=== PATIENT | female | born 1980 | race Caucasian/White ===

== ENCOUNTER 2018-01-28 12:52 | Inpatient (IN) | payer MEDICAID ==
[~2018-01-28] VITALS: Ht 170.2 cm; Wt 56.3 kg
[2018-01-28] MEDS ORDERED: PROZ10 PO (13:16)
[2018-01-28] MEDS ORDERED: BUPR75 PO (13:16)
[2018-01-28] MEDS ORDERED: QUET25TA PO (13:16)
[2018-01-28] MEDS ORDERED: LORA0.5T2 PO (13:16)
[2018-01-28 13:37] LABS: AMPHET/METH SCREEN,URINE POSITIVE (NEGATIVE); BARBITURATE SCREEN, URINE NEGATIVE (NEGATIVE); BENZODIAZEPINES SCREEN,URINE NEGATIVE (NEGATIVE); CANNABINOID SCREEN,URINE POSITIVE (NEGATIVE); COCAINE SCREEN,URINE NEGATIVE (NEGATIVE); METHADONE SCREEN, URINE NEGATIVE (NEGATIVE); OPIATE SCREEN,URINE NEGATIVE (NEGATIVE); PHENCYCLIDINE SCREEN,URINE NEGATIVE (NEGATIVE)
[2018-01-28 13:38] LABS: EOSINOPHILS % (AUTO) 1.3 % (1.0-6.0); HEMATOCRIT 34.9 % (36-46); HEMOGLOBIN 11.2 g/dL (12.0-16.0); LYMPHOCYTES # (AUTO) 1.2 K/uL (1.0-4.8); LYMPHOCYTES % (AUTO) 20.6 % (22.0-44.0); MEAN CORPUSCULAR HEMOGLOBIN 23.2 pg (26.0-34.0); MEAN CORPUSCULAR HGB CONC 32.1 G/dL (31.0-37.0); MEAN CORPUSCULAR VOLUME 72 fL (80-100); MONOCYTES # (AUTO) 0.7 K/uL (0.1-1.0); MONOCYTES % (AUTO) 10.8 % (2.0-9.0); NEUTROPHILS % (AUTO) 66.3 % (40.0-70.0); PLATELET COUNT (AUTO) 453 K/uL (150-450); RED BLOOD CELL COUNT(AUTO) 4.82 MIL/uL (4.00-5.20); RED CELL DISTRIBUTION WIDTH 19.1 % (11.5-14.5)
[2018-01-28 13:48] LABS: ANION GAP 11 mmol/L (8-16); CALCIUM, TOTAL 8.3 mg/dL (8.8-10.5); CARBON DIOXIDE 28 mmol/L (22-29); CHLORIDE 100 mmol/L (98-107); CREATININE 0.63 mg/dL (0.60-1.30); GLOMERULAR FILTR. RATE CALC > 60 mL/min (>60); GLUCOSE,RANDOM 104 mg/dL (70-110); POTASSIUM 3.4 mmol/L (3.5-5.1); SODIUM SERUM 139 mmol/L (136-145); UREA NITROGEN, BLOOD 15 mg/dL (7-18)
[2018-01-28 13:54] LABS: ALANINE AMINOTRANSFERASE 31 U/L (12-78); ALBUMIN 3.6 g/dL (3.4-5.0); ALKALINE PHOSPHATASE 109 U/L (46-116); ASPARTATE AMINOTRANSFERASE 24 U/L (15-37); BILIRUBIN,TOTAL 0.3 mg/dL (0.1-1.0); TOTAL PROTEIN, SERUM 7.3 g/dL (6.4-8.2)
[2018-01-28] MEDS ORDERED: HALOPERIDOL 5 MG TABLET PO PRN (15:00)
[2018-01-29 00:44] VITALS: BP 128/94
[2018-01-29] MEDS: IBUPROFEN 400 MG TABLET PO PRN ×2 (00:51→19:21)
[2018-01-29] MEDS: LORazepam 2 MG TABLET PO PRN (00:51)
[2018-01-29] MEDS ORDERED: POTASSIUM CHLORIDE 20 MEQ ER TABLET PO ONE (08:00)
[2018-01-29 08:29] VITALS: BP 123/68
[2018-01-29 08:47] LABS: BASOPHILS % (AUTO) 0.8 % (0.0-2.0); EOSINOPHILS % (AUTO) 1.2 % (1.0-6.0); HEMATOCRIT 36.1 % (36-46); HEMOGLOBIN 11.5 g/dL (12.0-16.0); LYMPHOCYTES # (AUTO) 1.8 K/uL (1.0-4.8); LYMPHOCYTES % (AUTO) 23.8 % (22.0-44.0); MEAN CORPUSCULAR HEMOGLOBIN 23.4 pg (26.0-34.0); MEAN CORPUSCULAR HGB CONC 31.8 G/dL (31.0-37.0); MEAN CORPUSCULAR VOLUME 74 fL (80-100); MONOCYTES # (AUTO) 0.6 K/uL (0.1-1.0); MONOCYTES % (AUTO) 7.8 % (2.0-9.0); NEUTROPHILS # (AUTO) 4.9 K/uL (1.8-7.7); NEUTROPHILS % (AUTO) 66.4 % (40.0-70.0); PLATELET COUNT (AUTO) 456 K/uL (150-450); RED CELL DISTRIBUTION WIDTH 19.6 % (11.5-14.5)
[2018-01-29 09:10] LABS: HEMOGLOBIN A1C 5.3 % (4.5-6.2)
[2018-01-29 09:38] LABS: ALANINE AMINOTRANSFERASE 33 U/L (12-78); ALBUMIN 3.5 g/dL (3.4-5.0); ALKALINE PHOSPHATASE 97 U/L (46-116); ANION GAP 6 mmol/L (8-16); ASPARTATE AMINOTRANSFERASE 39 U/L (15-37); BILIRUBIN,TOTAL 0.3 mg/dL (0.1-1.0); CALCIUM, TOTAL 8.4 mg/dL (8.8-10.5); CARBON DIOXIDE 28 mmol/L (22-29); CHLORIDE 103 mmol/L (98-107); CHOLESTEROL 172 mg/dL (131-200); CREATININE 0.64 mg/dL (0.60-1.30); GLOMERULAR FILTR. RATE CALC > 60 mL/min (>60); GLUCOSE,RANDOM 82 mg/dL (70-110); HDL CHOLESTEROL 88 mg/dL (40-60); LDL CHOL (CALC.) 73 mg/dL (0-130); SODIUM SERUM 137 mmol/L (136-145); THYROID STIMULATING HORMONE 1.15 uIU/mL (0.36-3.74); TOTAL PROTEIN, SERUM 7.2 g/dL (6.4-8.2); TRIGLYCERIDES 55 mg/dL (15-150); UREA NITROGEN, BLOOD 14 mg/dL (7-18)
[2018-01-29] MEDS: FLUoxetine HCL 20 MG CAPSULE PO SCH (10:47)
[2018-01-29] MEDS: ARIPiprazole 10 MG TABLET PO SCH (10:47)
[2018-01-29] MEDS: FERROUS SULFATE 325 MG EC TABLET PO SCH ×2 (12:16→16:07)
[2018-01-29 16:12] VITALS: BP 130/87
[2018-01-30] MEDS: FERROUS SULFATE 325 MG EC TABLET PO SCH ×3 (07:02→17:02)
[2018-01-30 07:36] LABS: ANION GAP 8 mmol/L (8-16); CALCIUM, TOTAL 8.3 mg/dL (8.8-10.5); CARBON DIOXIDE 25 mmol/L (22-29); CHLORIDE 101 mmol/L (98-107); CREATININE 0.58 mg/dL (0.60-1.30); GLOMERULAR FILTR. RATE CALC > 60 mL/min (>60); GLUCOSE,RANDOM 89 mg/dL (70-110); POTASSIUM 4.4 mmol/L (3.5-5.1); SODIUM SERUM 134 mmol/L (136-145); UREA NITROGEN, BLOOD 9 mg/dL (7-18)
[2018-01-30 08:38] VITALS: BP 133/88
[2018-01-30] MEDS: FLUoxetine HCL 20 MG CAPSULE PO SCH (09:03)
[2018-01-30] MEDS: ARIPiprazole 10 MG TABLET PO SCH (09:04)
[2018-01-30 12:55] VITALS: BP 128/85
[2018-01-30] MEDS: LORazepam 2 MG TABLET PO PRN (12:59)
[2018-01-30] MEDS: IBUPROFEN 400 MG TABLET PO PRN (12:59)
[2018-01-30] MEDS: SODIUM CHLORIDE 1 GM TABLET PO SCH (17:02)
[2018-01-31] MEDS: FERROUS SULFATE 325 MG EC TABLET PO SCH ×3 (06:35→17:02)
[2018-01-31 08:11] VITALS: BP 123/69
[2018-01-31] MEDS: SODIUM CHLORIDE 1 GM TABLET PO SCH ×2 (08:34→17:02)
[2018-01-31] MEDS: LORazepam 2 MG TABLET PO PRN ×2 (08:34→16:53)
[2018-01-31] MEDS: ARIPiprazole 10 MG TABLET PO SCH (08:34)
[2018-01-31] MEDS: FLUoxetine HCL 20 MG CAPSULE PO SCH (08:34)
[2018-01-31 16:07] VITALS: BP 121/78
[2018-01-31 16:50] VITALS: BP 120/86
[2018-01-31] MEDS: ACETAMINOPHEN 325 MG TABLET PO PRN (16:53)
[2018-02-01 06:05] VITALS: BP 134/76
[2018-02-01] MEDS: FERROUS SULFATE 325 MG EC TABLET PO SCH ×3 (06:16→16:27)
[2018-02-01 08:17] VITALS: BP 138/95
[2018-02-01] MEDS: SODIUM CHLORIDE 1 GM TABLET PO SCH ×2 (09:24→16:27)
[2018-02-01] MEDS: FLUoxetine HCL 20 MG CAPSULE PO SCH (09:24)
[2018-02-01] MEDS: ARIPiprazole 10 MG TABLET PO SCH (09:24)
[2018-02-01] MEDS: LORazepam 2 MG TABLET PO PRN ×2 (09:25→16:27)
[2018-02-01 10:12] LABS: % IRON SATURATION 9.3 % (22-44)
[2018-02-01 10:30] LABS: ANION GAP 8 mmol/L (8-16); CALCIUM, TOTAL 8.6 mg/dL (8.8-10.5); CARBON DIOXIDE 28 mmol/L (22-29); CHLORIDE 100 mmol/L (98-107); CREATININE 0.51 mg/dL (0.60-1.30); FERRITIN 17 ng/mL (8-252); GLOMERULAR FILTR. RATE CALC > 60 mL/min (>60); GLUCOSE,RANDOM 91 mg/dL (70-110); POTASSIUM 3.6 mmol/L (3.5-5.1); SODIUM SERUM 136 mmol/L (136-145); UREA NITROGEN, BLOOD 10 mg/dL (7-18)
[2018-02-01 16:00] VITALS: BP 124/85
[2018-02-02] MEDS: FERROUS SULFATE 325 MG EC TABLET PO SCH ×3 (06:53→16:34)
[2018-02-02 08:22] VITALS: BP 135/74
[2018-02-02 09:04] LABS: APPEARANCE,URINE CLOUDY (CLEAR); BILIRUBIN,URINE NEGATIVE (NEGATIVE); GLUCOSE, URINE (UA) NEGATIVE (NEGATIVE); KETONES,URINE NEGATIVE (NEGATIVE); LEUKOCYTE ESTERASE ,URINE SMALL (NEGATIVE); NITRATE,URINE NEGATIVE (NEGATIVE); OCCULT BLOOD,URINE NEGATIVE (NEGATIVE); PROTEIN,URINE NEGATIVE (NEGATIVE); UROBILINOGEN,URINE 0.2 mg/dL (<=1.0)
[2018-02-02 09:06] LABS: BACTERIA,URINE Rare /HPF (None Seen); CALCIUM OXALATE CRYSTALS,UR Moderate /LPF (None Seen); RBC,URINE 0-2 /HPF (0-2); SQUAMOUS EPITHELIAL CELL,UR Many /LPF (None Seen)
[2018-02-02] MEDS: CARBAMIDE PEROXIDE 6.5% 15 ML OTIC SOLUTION AU SCH (09:39)
[2018-02-02] MEDS: ARIPiprazole 10 MG TABLET PO SCH (09:39)
[2018-02-02] MEDS: SODIUM CHLORIDE 1 GM TABLET PO SCH ×2 (09:40→16:34)
[2018-02-02] MEDS: LORazepam 2 MG TABLET PO PRN ×3 (09:40→20:43)
[2018-02-02] MEDS: FLUoxetine HCL 20 MG CAPSULE PO SCH (09:40)
[2018-02-02 16:06] VITALS: BP 131/64
[2018-02-02] MEDS: IBUPROFEN 400 MG TABLET PO PRN (16:43)
[2018-02-02] MEDS: NICOTINE 14 MG/24 HOUR PATCH TD SCH (17:29)
[2018-02-02] MEDS: ZOLPIDEM TARTRATE 10 MG TABLET PO PRN (20:28)
[2018-02-03] MEDS: FERROUS SULFATE 325 MG EC TABLET PO SCH ×2 (07:08→16:41)
[2018-02-03 08:32] VITALS: BP 131/64
[2018-02-03] MEDS: FLUoxetine HCL 20 MG CAPSULE PO SCH (09:11)
[2018-02-03] MEDS: CARBAMIDE PEROXIDE 6.5% 15 ML OTIC SOLUTION AU SCH (09:11)
[2018-02-03] MEDS: LORazepam 2 MG TABLET PO PRN ×3 (09:12→20:16)
[2018-02-03] MEDS: ARIPiprazole 10 MG TABLET PO SCH (09:12)
[2018-02-03] MEDS: SODIUM CHLORIDE 1 GM TABLET PO SCH ×2 (09:12→16:39)
[2018-02-03] MEDS: NICOTINE 14 MG/24 HOUR PATCH TD SCH (09:14)
[2018-02-03 16:00] VITALS: BP 125/83
[2018-02-03] MEDS: ZOLPIDEM TARTRATE 10 MG TABLET PO PRN (21:34)
[2018-02-04] MEDS: FERROUS SULFATE 325 MG EC TABLET PO SCH ×2 (06:35→16:43)
[2018-02-04 08:00] VITALS: BP 130/74
[2018-02-04] MEDS: ARIPiprazole 10 MG TABLET PO SCH (08:36)
[2018-02-04] MEDS: LORazepam 2 MG TABLET PO PRN ×3 (08:36→20:14)
[2018-02-04] MEDS: SODIUM CHLORIDE 1 GM TABLET PO SCH ×2 (08:36→16:43)
[2018-02-04] MEDS: FLUoxetine HCL 20 MG CAPSULE PO SCH (08:36)
[2018-02-04] MEDS: CARBAMIDE PEROXIDE 6.5% 15 ML OTIC SOLUTION AU SCH (08:37)
[2018-02-04] MEDS: NICOTINE 14 MG/24 HOUR PATCH TD SCH (09:03)
[2018-02-04] MEDS: IBUPROFEN 400 MG TABLET PO PRN (10:27)
[2018-02-04 16:11] VITALS: BP 122/69
[2018-02-04] MEDS: ZOLPIDEM TARTRATE 10 MG TABLET PO PRN (21:30)
[2018-02-05 00:50] VITALS: BP 135/83
[2018-02-05] MEDS: LORazepam 2 MG TABLET PO PRN ×4 (00:50→17:21)
[2018-02-05] MEDS: IBUPROFEN 400 MG TABLET PO PRN ×3 (00:50→17:47)
[2018-02-05] MEDS: FERROUS SULFATE 325 MG EC TABLET PO SCH ×2 (06:40→16:14)
[2018-02-05 08:37] VITALS: BP 115/67
[2018-02-05] MEDS: SODIUM CHLORIDE 1 GM TABLET PO SCH ×2 (08:50→16:14)
[2018-02-05] MEDS: FLUoxetine HCL 20 MG CAPSULE PO SCH (08:50)
[2018-02-05] MEDS: CARBAMIDE PEROXIDE 6.5% 15 ML OTIC SOLUTION AU SCH (08:50)
[2018-02-05] MEDS: ARIPiprazole 10 MG TABLET PO SCH (08:50)
[2018-02-05] MEDS: NICOTINE 14 MG/24 HOUR PATCH TD SCH (08:51)
[2018-02-05] MEDS: ACETAMINOPHEN 325 MG TABLET PO PRN (12:59)
[2018-02-05 13:00] VITALS: BP 120/68
[2018-02-05 16:06] VITALS: BP 130/74
[2018-02-05] MEDS: BACITRACIN 28.4 GM OINTMENT TP SCH (16:14)
[2018-02-05 17:47] VITALS: BP 126/80
[2018-02-06 02:25] VITALS: BP 140/90
[2018-02-06] MEDS: LORazepam 2 MG TABLET PO PRN ×3 (02:28→13:29)
[2018-02-06] MEDS: IBUPROFEN 400 MG TABLET PO PRN ×2 (02:28→18:44)
[2018-02-06] MEDS: FERROUS SULFATE 325 MG EC TABLET PO SCH ×2 (06:43→16:42)
[2018-02-06] MEDS: ARIPiprazole 10 MG TABLET PO SCH (08:18)
[2018-02-06] MEDS: FLUoxetine HCL 20 MG CAPSULE PO SCH (08:18)
[2018-02-06] MEDS: SODIUM CHLORIDE 1 GM TABLET PO SCH ×2 (08:18→16:42)
[2018-02-06] MEDS: CARBAMIDE PEROXIDE 6.5% 15 ML OTIC SOLUTION AU SCH (08:19)
[2018-02-06] MEDS: NICOTINE 14 MG/24 HOUR PATCH TD SCH (08:19)
[2018-02-06] MEDS: BACITRACIN 28.4 GM OINTMENT TP SCH ×2 (08:24→16:42)
[2018-02-06 08:28] VITALS: BP 125/71
[2018-02-06 16:08] VITALS: BP 127/76
[2018-02-06 18:45] VITALS: BP 126/75
[2018-02-06] MEDS: ZOLPIDEM TARTRATE 10 MG TABLET PO PRN (20:08)
[2018-02-07 06:30] VITALS: BP 123/78
[2018-02-07] MEDS: IBUPROFEN 400 MG TABLET PO PRN ×2 (06:40→18:52)
[2018-02-07] MEDS: LORazepam 2 MG TABLET PO PRN ×3 (06:40→17:51)
[2018-02-07] MEDS: FERROUS SULFATE 325 MG EC TABLET PO SCH ×2 (07:17→16:51)
[2018-02-07 08:16] VITALS: BP 121/68
[2018-02-07] MEDS: SODIUM CHLORIDE 1 GM TABLET PO SCH ×2 (08:34→16:51)
[2018-02-07] MEDS: FLUoxetine HCL 20 MG CAPSULE PO SCH (08:34)
[2018-02-07] MEDS: NICOTINE 14 MG/24 HOUR PATCH TD SCH (08:34)
[2018-02-07] MEDS: CARBAMIDE PEROXIDE 6.5% 15 ML OTIC SOLUTION AU SCH (08:34)
[2018-02-07] MEDS: ARIPiprazole 10 MG TABLET PO SCH (08:34)
[2018-02-07] MEDS: BACITRACIN 28.4 GM OINTMENT TP SCH ×2 (08:35→17:08)
[2018-02-07 16:11] VITALS: BP 121/76
[2018-02-07] MEDS: ZOLPIDEM TARTRATE 10 MG TABLET PO PRN (20:21)
[2018-02-08] MEDS: LORazepam 2 MG TABLET PO PRN (06:31)
[2018-02-08] MEDS: FERROUS SULFATE 325 MG EC TABLET PO SCH (06:31)
[2018-02-08] MEDS: IBUPROFEN 400 MG TABLET PO PRN (06:32)
[2018-02-08 06:43] VITALS: BP 132/88
[2018-02-08] MEDS: NICOTINE 14 MG/24 HOUR PATCH TD SCH (08:08)
[2018-02-08] MEDS: BACITRACIN 28.4 GM OINTMENT TP SCH (08:08)
[2018-02-08] MEDS: FLUoxetine HCL 20 MG CAPSULE PO SCH (08:08)
[2018-02-08] MEDS: SODIUM CHLORIDE 1 GM TABLET PO SCH (08:08)
[2018-02-08] MEDS: ARIPiprazole 10 MG TABLET PO SCH (08:08)
[2018-02-08] MEDS: CARBAMIDE PEROXIDE 6.5% 15 ML OTIC SOLUTION AU SCH (08:09)
[2018-02-08 08:47] VITALS: BP 123/65
[2018-02-08] MEDS ORDERED: FLUO-191 PO (11:41)
[2018-02-08] MEDS ORDERED: FERR-89 PO (11:41)
[2018-02-08] MEDS ORDERED: ARIP10TA8 PO (11:41)
== END 2018-02-08 16:08 | disposition home or self-care (01) | DRG 750 ==
LOC: EMS 12:58 → B3A 19:30
PROVIDERS: ADMIT Psychiatry & Neurology Psychiatry; ATTEND Psychiatry & Neurology Psychiatry
DX: F25.1 Schizoaffective disorder, depressive type (principal); R45.851 Suicidal ideations; E83.51 Hypocalcemia; L29.9 Pruritus, unspecified; G47.00 Insomnia, unspecified; D64.9 Anemia, unspecified; F19.10 Other psychoactive substance abuse, uncomplicated; F43.10 Post-traumatic stress disorder, unspecified; F31.9 Bipolar disorder, unspecified; F15.90 Other stimulant use, unspecified, uncomplicated; D47.3 Essential (hemorrhagic) thrombocythemia; F17.210 Nicotine dependence, cigarettes, uncomplicated; Z59.0 Homelessness; Z88.1 Allergy status to other antibiotic agents; Z88.0 Allergy status to penicillin; Z79.899 Other long term (current) drug therapy
CPT/HCPCS: 82728; 83036; 83540; 83550; 84443; 87070; 87205; 99285; G0480